=== PATIENT | male | born 1995 | race Two or more races ===

== ENCOUNTER 2022-06-18 05:27 | Emergency (ER) | payer OTHER ==
[~2022-06-18] VITALS: Ht 188 cm; Wt 106.6 kg
--- NOTE | 2022-06-18 05:47 | NUR ---
BIB [employer] FOR C/O H/A, R KNEE AND L WRIST PAIN S/P "FELL FROM SECOND STORY WINDOW" , +FOREHEAD INJURY, -N/V, PT A/OX4. TOLERATING R/A WELL WITH NO RESP DISTRESS. SAFETY MEASURES IN PLACE.
--- NOTE | 2022-06-18 06:01 | NUR ---
EMT AT PT'S BEDSIDE TO CLEAN LAC TO FOREHEAD
--- NOTE | 2022-06-18 06:29 | NUR ---
PT TAKEN TO CT VIA [facility]
[2022-06-18] MEDS ORDERED: LIDOCAINE 1% INJ 50 ML MDV IJ ONE ×2 (06:30→06:31)
[2022-06-18] MEDS ORDERED: ACETAMINOPHEN 325 MG TABLET PO ONE (06:30)
[2022-06-18] MEDS ORDERED: TDAP [DIPH/PERTUSSIS/TET] 0.5 ML VIAL IM ONE ×2 (06:30→06:31)
[2022-06-18] MEDS ORDERED: ACETAMINOPHEN 325 MG TABLET ONE (06:31)
--- NOTE | 2022-06-18 06:45 | NUR ---
PT RETURNED TO ER BED [address]
--- NOTE | 2022-06-18 07:21 | NUR ---
DR. ADEN AT BED SIDE FOR SUTURES.
[2022-06-18 09:12] VITALS: BP 136/78
[2022-06-18] MEDS ORDERED: IBUP-1955 PO (09:29)
== END 2022-06-18 10:58 ==
LOC: ER 05:29
DX: S62.015A Nondisplaced fracture of distal pole of navicular [scaphoid] bone of left wrist, initial encounter for closed fracture (principal); S01.81XA Laceration without foreign body of other part of head, initial encounter; S80.211A Abrasion, right knee, initial encounter; I10 Essential (primary) hypertension; W13.4XXA Fall from, out of or through window, initial encounter; Y93.89 Activity, other specified; Y92.89 Other specified places as the place of occurrence of the external cause; Y99.8 Other external cause status
CPT/HCPCS: 99284; 72125; 71045; 29125; 12013; 90471; 90715; 73564; 70450; 73110; L3763; J3490; A6403